=== PATIENT | female | born 1985 | race Caucasian/White ===

== ENCOUNTER → 2021-01-09 | Outpatient (CLI) | payer MEDICARE, OTHER ==
--- NOTE | 2021-01-10 12:06 | MM ---
Reason for exam: clinical finding. Baseline mammogram. History: Patient has history of other cancer at age 30. Indicated problem(s): lump or thickening in the right breast. Physical Findings: Nurse Summary: 1.5cm nodule in the right breast at 12-1 o'clock (nurse db). MG 3D Diag Mammo W/Cad GARFIELD Bilateral CC and MLO view(s) were taken. There are scattered fibroglandular densities. 1.6cm mixed density vague area around 11-12 o'clock possible early fat necrosis or hematoma. These results were verbally communicated with the patient and result sheet given to the patient on 01/09/21. ASSESSMENT: Incomplete: need additional imaging evaluation, BI-RAD 0 RECOMMENDATION: Ultrasound of the right breast. (targeted)
--- NOTE | 2021-01-10 12:08 | USB ---
Reason for exam: additional evaluation requested from abnormal screening. History: Patient has history of other cancer at age 30. US Breast Limited RT Technologist: Sumi Glaser Right limited breast ultrasound including focal area of concern, retroareolar and axilla demonstrates a 0.9 x 1.5 x 0.8cm mixed echogenic area at 1 o'clock. Based on mammogram appearance, this may represent a Hamartoma. Scanned 11-1 o'clock. These results were verbally communicated with the patient and result sheet given to the patient on 01/09/21. ASSESSMENT: Probably benign, BI-RAD 3 RECOMMENDATION: Follow-up diagnostic mammogram of the right breast in 6 months. Manage patient on a clinical basis. If growth is noted, consider surgical evaluation.
== END | disposition home or self-care (01) ==
LOC: RADMAMWWP 08:56
PROVIDERS: ATTEND Obstetrics & Gynecology
DX: R92.8 Other abnormal and inconclusive findings on diagnostic imaging of breast (principal)
CPT/HCPCS: 77066; 76642; G0279; 77062

== ENCOUNTER 2024-03-11 11:37 | Emergency (ER) | payer MEDICARE, OTHER ==
[2024-03-11 11:41] VITALS: RESP 24
--- NOTE | 2024-03-11 12:09 | ED ---
Back Pain HPI - General Chief Complaint: Back Pain/Injury Stated Complaint: Back pain Time Seen by Provider: 03/11/24 12:05 Source: patient, RN notes reviewed Limitations: no limitations - History of Present Illness Initial Comments: 39-year-old female presenting for low back pain x 3 days. States she recently was ill with a URI and has been coughing. States 3 days ago she was cooking when she coughed and felt a pop in her left lower back. States she has had severe pain worse with movement since then. Pain does not radiate. Denies fevers, IV drug use. Denies loss of bowel or bladder incontinence. Denies weakness, numbness, tingling in bilateral lower extremities. Patient states she has history of bone cancer, non-Hodgkin lymphoma, and HIV. Patient reports history of hysterectomy. - Related Data Home Medications Medication Instructions Recorded Confirmed Cyanocobalamin [Vitamin B-12] 500 mcg PO DAILY 03/31/15 04/13/15 Emtricitabine/Tenofovir (Tdf) 1 each PO DAILY 03/31/15 04/13/15 [Truvada 200 mg-300 mg Tablet] Tivicay 50 mg PO DAILY 03/31/15 04/13/15 Previous Rx's Medication Instructions Recorded Acetaminophen-Codeine 300-30mg 2 each PO Q6HR PRN #30 tab 04/14/15 [Tylenol w/codeine #3] Ibuprofen [Motrin] 600 mg PO Q6HR PRN #30 tab 04/14/15 Lidocaine 5% Patch [Lidoderm 5% 1 patch TOPICAL DAILY PRN 7 Days 03/11/24 Patch] #7 patch Allergies Allergy/AdvReac Type Severity Reaction Status Date / Time cephalexin [From Keflex] Allergy Unknown Verified 01/09/21 09:49 gabapentin [From Neurontin] Allergy Swelling Verified 04/13/15 06:22 Latex, Natural Rubber Allergy Rash/Hives Verified 04/13/15 06:22 morphine Allergy Itching Verified 04/13/15 06:22 Sulfa (Sulfonamide Allergy Rash/Hives Verified 04/13/15 06:22 Antibiotics) Review of Systems ROS Statement: Those systems with pertinent positive or pertinent negative responses have been documented in the HPI. ROS Other: All systems not noted in ROS Statement are negative. Past Medical History Past Medical History: Asthma Additional Past Medical History / Comment(s): MIGRAINES, POSITIVE HIV, NON- HODGKINS LYMPHOMA DIAGNOSED 2013-LAST CHEMO THERAPY APPROX 13 MONTHS AGO., HX OF MRSA ABD ABSCESS (2006) AND STATES OTHER MRSA ON ARM, FINGER AND LEGS. (LAST MRSA 2009) History of Any Multi-Drug Resistant Organisms: MRSA Date of last positivie culture/infection: APRIL 2009 MDRO Source:: SKIN Past Surgical History: Adenoidectomy, Section, Tonsillectomy, Uterine Ablation Additional Past Surgical History / Comment(s): HEEL SPURS, ABD ABSCESS (2006), BX LEFT SINUS (2013), POWER PORT INSERTED AND REMOVED. Past Anesthesia/Blood Transfusion Reactions: No Reported Reaction Past Psychological History: No Psychological Hx Reported Past Alcohol Use History: Occasional Past Drug Use History: None Reported - Past Family History Mother Family Medical History: No Reported History General Exam Limitations: no limitations General appearance: alert, anxious Head exam: Present: atraumatic, normocephalic, normal inspection Eye exam: Present: normal appearance, PERRL (Pupils dilated bilaterally), EOMI. Absent: scleral icterus, conjunctival injection, periorbital swelling ENT exam: Present: normal exam, mucous membranes moist Respiratory exam: Present: normal lung sounds bilaterally. Absent: respiratory distress, wheezes, rales, rhonchi, stridor Cardiovascular Exam: Present: regular rate, normal rhythm, normal heart sounds. Absent: systolic murmur, diastolic murmur, rubs, gallop, clicks GI/Abdominal exam: Present: soft, normal bowel sounds. Absent: distended, tenderness, guarding, rebound, rigid Back exam: Present: normal inspection, full ROM, other (Full strength and range of motion of bilateral hips. No saddle anesthesia. Full sensation and DP pulses bilaterally.). Absent: tenderness, CVA tenderness (R), CVA tenderness (L), rash noted Neurological exam: Present: alert, oriented X3 Psychiatric exam: Present: normal affect, normal mood Skin exam: Present: warm, dry, intact, normal color. Absent: rash Course Vital Signs 03/11/24 03/11/24 11:37 13:03 Temperature 98.2 F 98.1 F Pulse Rate 120 H 113 H Respiratory 24 Rate Blood Pressure 109/76 136/76 O2 Sat by Pulse 97 98 Oximetry Medical Decision Making - Medical Decision Making Was pt. sent in by a medical professional or institution (, PA, [employer], urgent care, hospital, or usp...) When possible be specific @ -No Did you speak to anyone other than the patient for history (EMS, parent, family, police, friend...)? What history was obtained from this source @ -No Did you review nursing and triage notes (agree or disagree)? Why? @ -I reviewed and agree with nursing and triage notes Were old charts reviewed (outside hosp., previous admission, EMS record, old EKG, old radiological studies, urgent care reports/EKG's, usp records)? Report findings @ -No old charts were reviewed Differential Diagnosis (chest pain, altered mental status, abdominal pain women, abdominal pain men, vaginal bleeding, weakness, fever, dyspnea, syncope, headache, dizziness, GI bleed, back pain, seizure, CVA, palpatations, mental health, musculoskeletal)? @ -Differential Back Pain: Strain, zoster, cauda equina syndrome, epidural abscess, vertebral osteomyelitis, discitis, fracture, subluxation, disc herniation, DJD, spinal stenosis, dissection, AAA, pancreatitis, peptic ulcer disease, pyelonephritis, kidney stone, this is not meant to be an all-inclusive list. EKG interpreted by me (3pts min.). @ -None X-rays interpreted by me (1pt min.). @ -X-ray lumbar spine reveals no acute process CT interpreted by me (1pt min.). @ -None done U/S interpreted by me (1pt. min.). @ -None done What testing was considered but not performed or refused? (CT, X-rays, U/S, labs)? Why? @ -None What meds were considered but not given or refused? Why? @ -None Did you discuss the management of the patient with other professionals (professionals i.e. MEHREEN Sousa, E[employer], lab, RT, psych nurse, director of social media marketing, lawn care professional, teacher, forest fire control officer, medical case worker)? Give summary @ -No Was smoking cessation discussed for >3mins.? @ -No Was critical care preformed (if so, how long)? @ -No Were there social determinants of health that impacted care today? How? (Homelessness, low income, unemployed, alcoholism, drug addiction, transportation, low edu. Level, literacy, decrease access to med. care, detention, rehab)? @ -No Was there de-escalation of care discussed even if they declined (Discuss DNR or withdrawal of care, Hospice)? DNR status @ -No What co-morbidities impacted this encounter? (DM, HTN, Smoking, COPD, CAD, Cancer, CVA, ARF, Chemo, Hep., AIDS, mental health diagnosis, sleep apnea, morbid obesity)? @ -None Was patient admitted / discharged? Hospital course, mention meds given and route, prescriptions, significant lab abnormalities, going to OR and other pertinent info. @ - discharge. 39-year-old female presenting for back pain x 3 days. States she felt a pop in her left lower back while coughing. Neurovascularly intact. Analgesics provided. Due to tachycardia and dilated pupils, urine drug screen performed which returned positive for methamphetamine, opiates, tricyclic antidepressants, benzodiazepines, and marijuana. Urinalysis highly contaminated sample not suggestive of UTI. Urine negative. X-ray lumbar spine reveals no acute process. Results discussed with patient. Discussed diagnosis of low back strain. Appropriate return precautions and follow-up care discussed. Case was discussed with my ED attending Dr. Fernando. Undiagnosed new problem with uncertain prognosis? @ -No Drug Therapy requiring intensive monitoring for toxicity (Heparin, Nitro, Insulin, Cardizem)? @ -No Were any procedures done? @ -No Diagnosis/symptom? @ -Low back strain Acute, or Chronic, or Acute on Chronic? @ -Acute Uncomplicated (without systemic symptoms) or Complicated (systemic symptoms)? @ -Uncomplicated Side effects of treatment? @ -No Exacerbation, Progression, or Severe Exacerbation? @ -No Poses a threat to life or bodily function? How? (Chest pain, USA, NC, pneumonia, PE, COPD, DKA, ARF, appy, cholecystitis, CVA, Diverticulitis, Homicidal, Suicidal, threat to staff... and all critical care pts) @ -No - Lab Data Lab Results 03/11/24 03/11/24 Range/Units 13:37 13:37 Urine Color Yellow Urine Appearance Cloudy H (Clear) Urine pH 5.5 (5.0-8.0) Ur Specific [place] 1.050 H (1.001-1.035) Urine Protein 1+ H (Negative) Urine Glucose (UA) Negative (Negative) Urine Ketones Trace H (Negative) Urine Blood Negative (Negative) Urine Nitrite Negative (Negative) Urine Bilirubin 1+ H (Negative) Urine Urobilinogen 2.0 (<2.0) mg/dL Ur Leukocyte Esterase Negative (Negative) Urine RBC 2 (0-5) /hpf Urine WBC 2 (0-5) /hpf Ur Squamous Epith Cells 19 H (0-4) /hpf Urine Mucus Many H (None) /hpf Urine HCG, Qual Not Detected (Not Detectd) Urine Opiates Screen Detected H (NotDetected) Ur Oxycodone Screen Not Detected (NotDetected) Urine Methadone Screen Not Detected (NotDetected) Ur Barbiturates Screen Not Detected (NotDetected) U Tricyclic Antidepress Detected H (NotDetected) Ur Phencyclidine Scrn Not Detected (NotDetected) Ur Amphetamines Screen Not Detected (NotDetected) U Methamphetamines Scrn Detected H (NotDetected) U Benzodiazepines Scrn Detected H (NotDetected) Urine Cocaine Screen Not Detected (NotDetected) U Marijuana (THC) Screen Detected H (NotDetected) Disposition Clinical Impression: Low back strain Disposition: HOME SELF-CARE Condition: Stable Instructions (If sedation given, give patient instructions): Acute Low Back Pain (ED) Additional Instructions: Use lidocaine patches as needed for pain. Please return to the Emergency Department if symptoms worsen or any other concerns. Prescriptions: Lidocaine 5% Patch [Lidoderm 5% Patch] 1 patch TOPICAL DAILY PRN 7 Days #7 patch PRN Reason: Pain Is patient prescribed a controlled substance at d/c from ED?: No Referrals: Carlos Win MD [Primary Care Provider] - 1-2 days Time of Disposition: 14:14
[2024-03-11] MEDS: ORPHENADRINE 30 MG/ML 2 ML VIAL IM STA (12:14)
[2024-03-11] MEDS: KETOROLAC 15 MG/ML 1 ML VIAL IM STA (12:14)
[2024-03-11] MEDS: LIDOCAINE 4% PATCH TOPICAL ONE (12:14)
--- NOTE | 2024-03-11 12:35 | XR ---
EXAMINATION TYPE: XR lumbar spine 2 or 3V DATE OF EXAM: 03/11/2024 12:27 PM COMPARISON: None. CLINICAL INDICATION: Female, 39 years old with history of low back pain; PHH, pain TECHNIQUE: XR lumbar spine 2 or 3V - Frontal, lateral and coned in L5-S1 lateral views of the spine. FINDINGS: No evidence of any acute osseous pathology. No evidence of loss of vertebral body height i s seen. There is normal alignment of the lumbar vertebral bodies. Scattered disc space narrowing. Mul tilevel marginal osteophyte formation throughout the visualized spine. There is facet joint arthropat hy throughout the spine. Scattered at least mild neural foraminal stenosis. IMPRESSION: 1. No acute fracture. 2. Mild multilevel disc degeneration. [facility], , 03/11/2024 12:33 PM
[2024-03-11] MEDS: ONDANSETRON ODT 4 MG TAB PO STA (12:52)
[2024-03-11 13:52] LABS: Appearance,Urine Cloudy (Clear); Bilirubin,Urine 1+ (Negative); Blood,Urine Negative (Negative); Color,Urine Yellow; Glucose,Urine (UA) Negative (Negative); Ketones,Urine Trace (Negative); Leukocyte Esterase,Urine Negative (Negative); Mucus,Urine Many /hpf; Nitrite,Urine Negative (Negative); PH, Urine 5.5 (5.0-8.0); Protein,Urine 1+ (Negative); RBC,Urine 2 /hpf (0-5); Squamous Epithelial Cell,Urine 19 /hpf (0-4); WBC,Urine 2 /hpf (0-5)
[2024-03-11 13:58] LABS: Amphetamine Screen,Urine Not Detected (NotDetected); Barbiturate Screen,Urine Not Detected (NotDetected); Benzodiazepines Screen,Urine Detected (NotDetected); Cocaine Screen,Urine Not Detected (NotDetected); Methadone Screen, Urine Not Detected (NotDetected); Opiate Screen,Urine Detected (NotDetected); Oxycodone Screen, Urine Not Detected (NotDetected); Phencyclidine Screen,Urine Not Detected (NotDetected); Tricyclic Antidepressant,Urine Detected (NotDetected); Urn Cannabinoid Scrn Detected (NotDetected)
[2024-03-11 14:38] VITALS: BP 128/74; PULSE 96; TEMP 98
== END 2024-03-11 14:38 | disposition home or self-care (01) ==
LOC: EC 11:37
DX: S39.012A Strain of muscle, fascia and tendon of lower back, initial encounter (principal); Z88.2 Allergy status to sulfonamides; Z88.1 Allergy status to other antibiotic agents; Z88.8 Allergy status to other drugs, medicaments and biological substances; Z91.040 Latex allergy status; X50.0XXA Overexertion from strenuous movement or load, initial encounter
CPT/HCPCS: 81001; 81025; 80306; 72100; 99283; 96372 ×2; J2360; J1885